=== PATIENT | female | born 1995 | race American Indian/Alaskan Native ===

== ENCOUNTER 2019-03-24 05:58 | Inpatient (IN) | payer MEDICAID ==
[2019-03-24] MEDS ORDERED: MINERAL OIL PO PRN (06:25)
[2019-03-24] MEDS ORDERED: BRETHINE SUB-Q PRN (06:25)
[2019-03-24] MEDS ORDERED: PITOCin/NS 20 UNIT/1000ML DRIP 20,000 MILLIUNITS/1,000 ML BAG IV ONE (06:26)
[2019-03-24] MEDS ORDERED: LACTATED RINGERS 1,000 ML ONE (06:26)
--- NOTE | 2019-03-24 06:42 | History and Physical Report ---
History of Present Illness Date of examination: 03/24/19 (pt arrived 8-9 cm dilated) Date of admission: 03/24/19 06:31 Past History - Obstetrical History Expected Date of Delivery: 03/17/19 Actual Gestation: 41 Week(s) 0 Day(s) : 2 Para: 1 Hx # Term Pregnancies: 1 Number of Pregnancies: 0 Spontaneous Abortions: 0 Induced : 0 Number of Living Children: 1 Medications and Allergies Active Meds: Active Medications Ephedrine Sulfate (Ephedrine Sulfate) 10 mg IV Q2M PRN PRN Reason: Hypotension Oxytocin/Sodium Chloride (Pitocin/Ns 20 Unit/1000ml Drip) 20 units in 1,000 mls @ 125 mls/hr IV DIRECT JAMIL Lactated Ringer's (Lactated Ringers) 1,000 mls @ 125 mls/hr IV DIRECT JAMIL Ampicillin Sodium (Polycillin/Ns 2 Gm/100 Ml) 2 gm in 100 mls @ 100 mls/hr IV ONCE ONE; Protocol Stop: 03/24/19 07:24 Ampicillin Sodium (Ampicillin/Ns 1 Gm/50 Ml) 1 gm in 50 mls @ 100 mls/hr IV Q4HR JAMIL; Protocol Lidocaine (Xylocaine 2%) 20 ml INFILTRATI ONCE ONE Stop: 03/24/19 06:26 Mineral Oil (Mineral Oil) 30 ml PO QHS PRN PRN Reason: Constipation Terbutaline Sulfate (Brethine) 0.25 mg SUB-Q ONCE PRN PRN Reason: Hyperstimulation/Hypertonicity - Vital Signs Vital signs: Vital Signs Pulse BP 76 130/87 03/24/19 06:11 03/24/19 06:11 Temp Pulse Resp BP Pulse Ox 76 130/87 03/24/19 06:11 03/24/19 06:11 - Physical Exam Breasts: Positive: deferred Cardiovascular: Regular rate, Normal S1, Normal S2 Lungs: Positive: Normal air movement Abdomen: Positive: normal appearance, soft, normal bowel sounds. Negative: distention, tenderness Genitourinary (Female): Positive: normal perenium Vulva: both: normal Vagina: Positive: normal moisture. Negative: discharge Cervix: Negative: lesion, discharge Uterus: Positive: normal size, normal contour Adnexa: both: normal Anus/Rectum: Positive: normal perianal skin, heme negative. Negative: rectal mass, hemorrhoids Extremities: Positive: normal Deep Tendon Reflex Grade: Normal +2 - Obstetrical FHR: category 2 (variables) Uterine Contraction Monitor Mode: External Cervical Dilatation: 8.5 Cervical Effacement Percentage: 100 station: 0 Uterine Contraction Pattern: Regular Uterine Tone Measurement Phase: Resting Uterine Contraction Intensity: Moderate Results All other labs normal. Assessment and Plan 23yo arrived advanced dilated in active labor Pt has had NO care this . Denies any drup or ETOH use. States she has no medical hx nor surgical hx. Anticipate delivery. - Patient Problems (1) No care in current Onset Date: ~03/24/19 Current Visit: Yes Status: Acute Qualifiers: Trimester: third trimester Qualified Code(s): O09.33 - Supervision of with insufficient care, third trimester
--- NOTE | 2019-03-24 06:49 | Procedure Note ---
OB Delivery Note - Delivery Date of Delivery: 03/24/19 Surgeon: MALRENA SINGH Estimated blood loss: other (400mL) - Vaginal Delivery presentation: vertex Delivery position: OA Intrapartum events: no care, other(please specify) (thick meconium) Delivery induction: none Delivery monitor: external FHT, external uterine ( bradycardia) Route of delivery: Delivery placenta: spontaneous (intact) Anesthesia: none - Infant A at 1 minute: 8 at 5 minutes: 9 Gender: Male (6lbs 6oz)
[2019-03-24 06:59] LABS: Hematocrit 35.5 % (30.3-42.9); Hemoglobin 12.1 gm/dl (10.1-14.3); Mean Corpuscular HGB Conc 34 % (30-34); Mean Corpuscular Volume 97 fl (79-97); Platelet Count 165 K/mm3 (140-440); Red Blood Count 3.66 M/mm3 (3.65-5.03)
[2019-03-24] MEDS ORDERED: LACTATED RINGERS 1,000 ML IV SCH (07:00)
[2019-03-24] MEDS ORDERED: PITOCin/NS 20 UNIT/1000ML DRIP 20 UNITS/1,000 ML BAG IV SCH (07:00)
[2019-03-24] MEDS ORDERED: LANSINOH TP PRN (08:00)
[2019-03-24] MEDS ORDERED: BENADRYL PO PRN (08:00)
[2019-03-24] MEDS ORDERED: TUCKS PAD TP PRN (08:00)
[2019-03-24] MEDS ORDERED: XYLOCAINE 2% INFILTRATI NR (08:00)
[2019-03-24] MEDS ORDERED: AMPICILLIN/NS 2 GM/100 ML 2 GM/100 ML BAG IV ONE (08:00)
[2019-03-24] MEDS: IBUPROFEN PO SCH ×3 (08:12→20:00)
[2019-03-24] MEDS ORDERED: PHENERGAN PR PRN (08:30)
[2019-03-24] MEDS ORDERED: SODIUM CHLORIDE FLUSH SYRINGE 10 ML IV PRN (08:30)
[2019-03-24] MEDS ORDERED: ZOFRAN IV PRN (08:30)
[2019-03-24] MEDS ORDERED: PHENERGAN PO PRN (08:30)
[2019-03-24] MEDS ORDERED: METHERGINE IM ONE (09:00)
[2019-03-24 09:07] LABS: Amorphous Crystals,Urine Few; Bilirubin,Urine NEG (Negative); Blood,Urine LG (Negative); Color,Urine Yellow (Yellow); Mucus,Urine 2+ /HPF; Protein,Urine <15 mg/dL mg/dL (Negative); Urobilinogen,Urine < 2.0 mg/dL (<2.0)
[2019-03-24 09:08] LABS: RBC,Urine > 182.0 /HPF (0.0-6.0)
[2019-03-24 09:12] LABS: Amphetamine Screen,Urine PRESUMPTIVE NEGATIVE; Benzodiazepines Screen,Urine PRESUMPTIVE NEGATIVE; Cocaine Screen,Urine PRESUMPTIVE NEGATIVE; Methadone Screen,Urine PRESUMPTIVE NEGATIVE; Opiate Screen,Urine PRESUMPTIVE NEGATIVE
[2019-03-24 09:25] LABS: Cannabinoid Screen,Urine PRESUMPTIVE POSITIVE
[2019-03-24] MEDS ORDERED: DULCOLAX PR PRN (10:00)
[2019-03-24] MEDS ORDERED: AMPICILLIN/NS 1 GM/50 ML 1 GM/50 ML BAG IV SCH (12:30)
[2019-03-24 14:32] LABS: Hepatitis C Virus Antibody Non-Reactive (NonReactive)
[2019-03-24 19:09] LABS: Hematocrit 27.1 % (30.3-42.9); Hemoglobin 9.5 gm/dl (10.1-14.3)
[2019-03-24] MEDS: TYLENOL PO PRN (20:41)
[2019-03-24] MEDS ORDERED: MILK OF MAGNESIA PO PRN (22:00)
[2019-03-25] MEDS: IBUPROFEN PO SCH ×4 (05:02→23:28)
--- NOTE | 2019-03-25 07:02 | Discharge Summary ---
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 POSITIVE UDS. INFANT 03/25/19 01:46 Consult to Case Management [CONS] Routine Services Needed at Discharge: Piano Machine Operator Notified:: n/a Phone number called:: [phone] Additional Physician Instructions: Pt states " she needs a rear facing car seat". Jimbo here saw PT and will be communicating with you. Info for [employer] agency service representative is in the chat. Primary care physician: MARLENA SINGH Hospitalization Reason for admission: active labor Delivery: Episiotomy: none Laceration: none Incision: normal Other procedures: none complications: none Discharge diagnosis: IUP at term delivered [place] baby: male Hospital course: uncomplicated vaginal delivery Pt resting No c/o voiced VSS FF below umb Lochia small Perineum intact H&H 07/30 drop r/t blood loss from delivery. Asymptomatic. Doing well s/p vag delivery P: d/c today with instructions RTO 1 week circ 4 weeks PP care RX provided Condition at discharge: Good Disposition: DC-01 TO HOME OR SELFCARE - Discharge Diagnoses (1) (normal spontaneous vaginal delivery) Status: Acute Comment: RTO 1 week PP care Plan - Discharge Medications Prescriptions: Lidocain2.5%/Prilocai2.5% [Emla] 5 gm TP PRN #1 tube Ibuprofen [Motrin 800 MG tab] 800 mg PO TID PRN #30 tablet PRN Reason: Pain - Provider Discharge Summary Activity: routine, no sex for 6 weeks, no heavy lifting 4 weeks, no strenuous exercise Diet: routine Instructions: routine Additional instructions: [] Smoking cessation referral if applicable(refer to patient education folder for contact #) [] Refer to [facility] Booklet Call your doctor immediately for: * Fever > 100.5 * Heavy vaginal bleeding ( >1 pad per hour) * Severe persistent headache * Shortness of breath * Reddened, hot, painful area to leg or breast * Drainage or odor from incision. * Keep incision clean and dry at all times and follow doctor's instructions regarding bathing/showering - Follow up plan Follow up: MARLENA SINGH MD [Primary Care Provider] - 7 Days (Congratulations! Please call [phone] to schedule your visit in 4 weeks and your son's circumcision in one week. Bring the EMLA cream with you to his visit. Do NOT use at home. Take medications as prescribed. Call with any concerns. [facility]: [address] [facility] [id number])
[2019-03-25] MEDS: TYLENOL PO PRN ×2 (10:25→16:35)
[2019-03-26] MEDS: IBUPROFEN PO SCH ×2 (05:19→10:08)
[2019-03-26] MEDS: TYLENOL PO PRN (12:04)
[2019-03-26 13:19] VITALS: BP 119/77
== END 2019-03-26 13:20 | disposition home or self-care (01) | DRG 775 ==
LOC: TRG 05:58 → LD 06:31 → OB 10:28
PROVIDERS: ADMIT Obstetrics & Gynecology; ATTEND Obstetrics & Gynecology
PROC: 10E0XZZ Delivery of Products of Conception, External Approach (ICD-10-PCS; principal; 2019-03-24)
DX: O77.0 Labor and delivery complicated by meconium in amniotic fluid (principal); O76 Abnormality in fetal heart rate and rhythm complicating labor and delivery; Z3A.41 41 weeks gestation of pregnancy; Z37.0 Single live birth
CPT/HCPCS: 36415; 80307; 81001; 85014; 85018; 85027; 85660; 86592; 86706; 86762; 86803; 86850; 86900; 86901; 87806; 88307; G0378; J2210; J2590; J7120